=== PATIENT | female | born 1990 | race Caucasian/White ===

== ENCOUNTER 2021-07-16 00:26 | Day surgery (SDC) | payer OTHER, SELFPAY ==
--- NOTE | 2021-07-09 14:27 | PC.NURSE ---
Report to the Outpatient Waiting Room, entrance under the green pavilion located off [facility], at time 0600_ on date _07/16/21___. OR Time: _0730_. - You and your visitor will be asked a series of questions to screen for COVID 19 for your protection. - Only one visitor is allowed at this time. - The patient visitor is requested to leave or wait in car when not with patient. - A mask is required within the hospital. Patients may have clear liquids (water, carbonated beverages, clear teas, apple juice) until 3 hours prior to surgery with a maximum of 20 ounces. - No food from midnight until time of surgery - Infants may have breast milk until 4 hours before surgery, formula 6 hours prior to surgery. - Children will be allowed to drink immediately following surgery. If applicable, please bring a bottle or sippy cup to assist with drinking. Juice, water, soda, and popsicles are readily available. For infants on formula, please bring formula the day of surgery. Pacifiers are allowed. Take the following medications with a SIP of water the morning of surgery: _PROPRANOLOL, SERTRALINE, ALBUTEROL AND FLONASE IF NEEDED Medications to discontinue per physician _STOP ANY SUPPLEMENTS 3 DAYS PRIOR TO SURGERY ___ Date to take last dose Please no make-up, nail korean, hairspray, perfume, deodorant, or body powder the day of surgery. No jewelry (including any body piercings) or valuables the day of surgery, leave them at home. Please take a shower or bath the night before, or the morning of, surgery with an antibacterial soap. Wear comfortable, loose fitting clothing. Children are encouraged to wear pajamas. - Jewelry must be removed prior to entering the operating room. Rings and piercings that are not removed may be cut off. - The hospital will not accept responsibility for valuables. - Please leave all valuables, including medications, at home the day of surgery. If you are going home after surgery, a licensed trash truck driver must drive you home. - NO public transportation without another adult. - We recommend that an adult stay with you for 24 hours following discharge. - We also recommend that you do not drive, make important decision, drink alcoholic beverages, or take any drugs that were not prescribed by your health care provider for at least 24 hours after your discharge time. For Pediatric surgeries, we recommend two adults accompany the child home (only one inside the building at this time). Follow any additional instructions given to you from your surgeon. If you or anyone in your household have experienced Covid symptoms in the past week, please notify your surgeon or the nurse liaison at the phone number below for possible testing. Telephone instructions given to _PATIENT__and asked if any additional questions and then verbalized understanding. Patient advised to call surgeon office or pre surgery nurse liaison [phone] if any additional questions.
[2021-07-09 14:43] VITALS: BMI 35.9
[2021-07-16] VITALS (8 sets, daily range): BP systolic 117–147; BP diastolic 66–87; PULSE 77–92; RESP 14–19; TEMP 36.8–36.9; O2SAT 96–100
[2021-07-16] MEDS: ACETAMINOPHEN 500 MG TABLET 1000 MG PO (06:42)
--- NOTE | 2021-07-16 06:59 | ECG_ITS ---
Measurements Intervals [place] Rate: 71 P: 47 UT: 150 QRS: 19 QRSD: 95 T: 21 QT: 366 QTc: 400 Interpretive Statements SINUS RHYTHM INCOMPLETE RIGHT BUNDLE BRANCH BLOCK BASELINE ARTIFACT- I, II, AVR, V1 BORDERLINE ECG Electronically Signed On 07-16-2021 7:48:09 CDT by Biju Jorge D.O.
--- NOTE | 2021-07-16 07:15 | WPDANESEPPF ---
Anes - Initial Pre Proc Eval Procedure: Operation Date: 07/16/21 07:45 Proposed Procedures p Septoplasty, - Tamir Garcia MD s Bilateral Turbinate Reduction, Bilateral Sary Bullosa - Tamir Garcia MD Date/Time: 07/16/21 07:15 Surgeon: Tamir Garcia MD Pre Op Diagnosis: deviated septum, turbinate hypertrophy Patient Data Age: 30 Gender: F Height: 1.68 m Weight: 102.4 kg Last Vital Signs Temp 36.8 C 07/16/21 06:54 Pulse 92 07/16/21 06:54 Resp 16 07/16/21 06:54 BP 125/79 07/16/21 06:54 Pulse Ox 100 07/16/21 06:54 Allergies Allergy/AdvReac Type Severity Reaction Status Date / Time amoxicillin Allergy Severe Anaphylactic Verified 07/16/21 06:38 Shock Sulfa (Sulfonamide Allergy Severe Difficulty Verified 07/16/21 06:38 Antibiotics) Breathing topiramate Allergy Severe Anaphylactic Verified 07/16/21 06:38 Shock dicyclomine Allergy Intermediate Blurry Verified 07/16/21 06:38 Vision iodine Allergy Mild Itching Verified 07/16/21 06:38 Home Medications Medication Instructions Recorded Confirmed Type albuterol sulfate 1 puff INHALATION TID PRN 07/09/21 07/09/21 History amitriptyline 10 mg PO DAILY 07/09/21 07/09/21 History amlodipine 2.5 mg PO DAILY 07/09/21 07/09/21 History bupropion HCl 300 mg PO DAILY 07/09/21 07/09/21 History cyclobenzaprine 5 mg PO TID PRN 07/09/21 07/09/21 History diclofenac sodium [Voltaren] 50 mg PO TID PRN 07/09/21 07/09/21 History fluticasone propionate 50 mcg INTRANASAL BID PRN 07/09/21 07/09/21 History glycopyrrolate 2 mg PO DAILY 07/09/21 07/09/21 History hyoscyamine sulfate 0.125 mg 07/09/21 History ketoconazole 2 applic TOPICAL DAILY PRN 07/09/21 07/09/21 History ketoconazole 2 applic TOPICAL DAILY PRN 07/09/21 07/09/21 History methylprednisolone 4 mg PO DAILY 07/09/21 07/09/21 History montelukast 10 mg PO DAILY PRN 07/09/21 07/09/21 History omeprazole 20 mg PO DAILY 07/09/21 07/09/21 History propranolol 160 mg PO 07/09/21 History rimegepant [Nurtec ODT] mg 07/09/21 History sertraline 100 mg PO DAILY 07/09/21 07/09/21 History sumatriptan succinate SUBCUT 07/09/21 History tramadol 50 mg PO HS PRN 07/09/21 07/09/21 History Patient hx anesthesia problems: none and other (motion sickness) Family hx anesthesia problems: none Results Review: All pre-operative results and documents have been reviewed as part of the pre-operative evaluation. [facility] Past Medical History Medical History Anxiety Asthma Chronic pain syndrome Depression GERD (gastroesophageal reflux disease) Hx of migraines Hypertension Social History Social History Smoking status: Never smoker Alcohol intake: never Alcohol use details: maybe socially, one every couple months Substance use: never Substance use type: does not use Living arrangements: with roommate(s) Spiritual care concerns: No Anes - Eval Final PreProcedure Day of Procedure 07/16/21 07:15 Patient weight: obese Heart: regular rate and rhythm Lungs: clear to auscultation Airway: Mallampati scale class II Neurological: alert and oriented Last oral intake: >/= 8 hours ASA classification: III Emergent: no Anesthetic plan: proceed Anesthesia type and monitoring: general ETT and standard monitoring Results Review: All pre-operative results and documents have been reviewed as part of the pre-operative evaluation. Informed Consent: The patient's anesthetic plan and its attendant risks and benefits were discussed with the patient/family/POA. Questions were solicited and answers provided to the satisfaction of the patient/family/POA.
[2021-07-16] MEDS: LACTATED RINGERS 1,000 ML 30 ML IV CONT (07:24)
[2021-07-16] MEDS: SCOPOLAMINE 1.5 MG PATCH TRANSDERM (07:24)
--- NOTE | 2021-07-16 07:24 | PM.IMHP ---
H&P: HPI History of Present Illness Date/Time: 07/16/21 07:24 Chief Complaint: nasal dyspnea Narrative: Right septal deviation and nasal dyspnea Review of Systems Review of Systems: All systems reviewed & are unremarkable except as noted in HPI and below PMFSH Past Medical History Medical History Anxiety Asthma Chronic pain syndrome Depression GERD (gastroesophageal reflux disease) Hx of migraines Hypertension Social History Social History Smoking status: Never smoker Alcohol intake: never Alcohol use details: maybe socially, one every couple months Substance use: never Substance use type: does not use Living arrangements: with roommate(s) Spiritual care concerns: No Meds Home Medications and Allergies Home Medications Medication Instructions Recorded Confirmed Type albuterol sulfate 1 puff INHALATION TID PRN 07/09/21 07/09/21 History amitriptyline 10 mg PO DAILY 07/09/21 07/09/21 History amlodipine 2.5 mg PO DAILY 07/09/21 07/09/21 History bupropion HCl 300 mg PO DAILY 07/09/21 07/09/21 History cyclobenzaprine 5 mg PO TID PRN 07/09/21 07/09/21 History diclofenac sodium [Voltaren] 50 mg PO TID PRN 07/09/21 07/09/21 History fluticasone propionate 50 mcg INTRANASAL BID PRN 07/09/21 07/09/21 History glycopyrrolate 2 mg PO DAILY 07/09/21 07/09/21 History hyoscyamine sulfate 0.125 mg 07/09/21 History ketoconazole 2 applic TOPICAL DAILY PRN 07/09/21 07/09/21 History ketoconazole 2 applic TOPICAL DAILY PRN 07/09/21 07/09/21 History methylprednisolone 4 mg PO DAILY 07/09/21 07/09/21 History montelukast 10 mg PO DAILY PRN 07/09/21 07/09/21 History omeprazole 20 mg PO DAILY 07/09/21 07/09/21 History propranolol 160 mg PO 07/09/21 History rimegepant [Nurtec ODT] mg 07/09/21 History sertraline 100 mg PO DAILY 07/09/21 07/09/21 History sumatriptan succinate SUBCUT 07/09/21 History tramadol 50 mg PO HS PRN 07/09/21 07/09/21 History Allergies Allergy/AdvReac Type Severity Reaction Status Date / Time amoxicillin Allergy Severe Anaphylactic Verified 07/16/21 06:38 Shock Sulfa (Sulfonamide Allergy Severe Difficulty Verified 07/16/21 06:38 Antibiotics) Breathing topiramate Allergy Severe Anaphylactic Verified 07/16/21 06:38 Shock dicyclomine Allergy Intermediate Blurry Verified 07/16/21 06:38 Vision iodine Allergy Mild Itching Verified 07/16/21 06:38 Vital Signs Vital Signs - 24 hr 07/16/21 06:54 Temperature 36.8 C Pulse Rate 92 Respiratory Rate 16 Blood Pressure 125/79 Pulse Oximetry 100 Exam Narrative: Right septal deviation, bilateral inferior turbinate hypertrophy, bilateral amanda bullosa. rest of exam wnl Assessment and Plan Assessment and plan (1) Deviated septum: Code(s): J34.2 - Deviated nasal septum Status: Acute Assessment and Plan: Here for septoplasty, turbinoplasty and bilateral amanda bullosectomy. r/b/a reviewed, refer to outpt H&P for full details.
[2021-07-16] MEDS: OXYMETAZOLINE HCL 0.05% NAS 15 ML BTL (*BKC) 1 SPRAY NASAL ×2 (07:26→07:44)
--- NOTE | 2021-07-16 07:26 | WPDHPUPDATE1 ---
History and Physical Update Update Date/Time: 07/16/21 07:26 History and Physical has been reviewed, including an updated exam of the patient. There are NO changes in the patient's condition. Risks, benefits, and alternatives have been discussed and questions answered. Patient agrees to proceed with procedure.
[2021-07-16] MEDS: ceFAZolin 2 GM/D5W 50 ML 2 GM/50 ML BAG IVPB (07:34)
--- NOTE | 2021-07-16 08:27 | P.OP_ITS ---
Procedure Note - Detailed Date of Procedure 07/16/21 Pre-op Diagnosis deviated septum, turbinate hypertrophy Post-op Diagnosis Same Procedure Performed Septoplasty, bilateral inferior turbinoplasty, bilateral amanda bullosectomy Surgeon Tamir Garcia MD Anesthesia General Indications Nasal dyspnea Findings Significant right septal deviation Description of Procedure After obtaining informed consent and proper site verification the patient was brought to the operating room and placed on the operating table in the supine position. They were placed under general endotracheal anesthesia by the anesthesia provider. The patient was then draped in standard fashion for septoplasty and turbinoplasty. A timeout was performed and the correct patient and procedure were verified. The nasal cavity was injected with 1% lidocaine with 1-100,000 epinephrine and packed with afrin-soaked cottonoid pledgets. ? Attention was then directed to the nasal septum. A hemitransfixion incision was made in the left caudal septum and a mucoperichondrial flap was elevated in the usual fashion. The flap was elevated under endoscopic visualization and the remainder of the case was performed with endoscopic assistance. Using a D- knife, an incision was made through the cartilaginous septum with care to preserve the appropriate caudal and dorsal ?L-strut? of cartilage. The cartilage was then disarticulated from the bony-cartilaginous junction and the deviated cartilage was removed. Further deviated bone and cartilage was removed from the maxillary crest and posterior bony septum with care to avoid injury to the mucoperichondrial flap using a combination of dissection and Leon- Suzie forceps. Once this was completed, the hemitransfixion incision was closed using simple interrupted 4-0 chromic suture. A quilting stitch to reapproximate the mucoperichondrial flaps was then placed using 4-0 plain gut suture on a Lars needle. ? Next attention was directed to the turbinates. Using a 0? telescope and 2mm turb inate blade microdebrider, a stab incision was made in the anterior face of the turbinate and dissection was carried posterior to perform submucosal resection. Next the turbinate was outfractured using a blunt instrument. A similar procedure was then performed on the right-hand side without difficulty. The middle turbinates were aerated and medialized using freer elevator and adrian elevator to address amanda bullosa. This significantly improved the nasal airways. Rascon splints covered in mupirocin ointment were placed in the nasal cavity and secured to the membranous septum using a 3-0 Prolene suture. ?The patient was awakened from general anesthesia extubated in the operating room, and transported to the recovery room in stable condition without complication. Estimated Blood Loss 20 Drains No Packing Yes (rascon splints) Pathology None sent Complications No immediate complications Condition Stable Disposition PACU
[2021-07-16] MEDS: LIDO 1%/EPINEPHRINE 1:100,000 50 ML VIAL INFILTRATE (08:34)
[2021-07-16] MEDS: MUPIROCIN 2% OINT 22 GM TUBE 1 APPLIC EACH NARE (08:35)
[2021-07-16] MEDS: fentaNYL CITRATE INJ (*CRX) 100 MCG/2 ML VIAL 25 MCG IV PUSH ×2 (08:55→09:01)
[2021-07-16] MEDS: oxyCODONE HCL (*CRX) 5 MG TAB IR PO (09:25)
== END 2021-07-16 10:12 | disposition home or self-care (01) ==
PROVIDERS: PCP Physician Assistant; Visit Provider Otolaryngology
PROC: (CPT 30520; principal; 2021-07-16 07:45)
PROC: (CPT 30520; 2021-07-16 07:45)
DX: J34.2 Deviated nasal septum (principal); J34.3 Hypertrophy of nasal turbinates; I10 Essential (primary) hypertension; J45.909 Unspecified asthma, uncomplicated; K21.9 Gastro-esophageal reflux disease without esophagitis; F41.8 Other specified anxiety disorders; G89.4 Chronic pain syndrome; Z79.51 Long term (current) use of inhaled steroids; E66.9 Obesity, unspecified; Z68.36 Body mass index [BMI] 36.0-36.9, adult
CPT/HCPCS: 30520; 30140; 31240; 93005; A9270; J0330; J0690; J1100; J2250; J2405; J2704; J3010; J7120